=== PATIENT | male | born 1965 | race Hispanic/Latino ===

== ENCOUNTER 2017-08-16 07:21 | Day surgery (SDC) | payer BC ==
[2017-08-16 07:50] VITALS: BMI 35.3
[2017-08-16] MEDS ORDERED: Propofol 10 mg/ml Inj (20 ML) ONE (08:45)
[2017-08-16] MEDS ORDERED: Phenylephrine 10 mg/ml Inj ONE (08:52)
[2017-08-16] MEDS ORDERED: Lactated Ringer's 1,000 ML IV ONE (09:10)
[2017-08-16 09:57] VITALS: TEMP 97.4
[2017-08-16 10:42] VITALS: BP 124/85; PULSE 85; RESP 21; O2SAT 100
== END 2017-08-16 10:42 | disposition home or self-care (01) ==
LOC: C.ENDO 07:21
PROVIDERS: ATTEND Internal Medicine Gastroenterology
DX: Z12.11 Encounter for screening for malignant neoplasm of colon (principal); D12.3 Benign neoplasm of transverse colon; K64.1 Second degree hemorrhoids; K59.00 Constipation, unspecified; K62.5 Hemorrhage of anus and rectum; E11.9 Type 2 diabetes mellitus without complications; I10 Essential (primary) hypertension; E66.9 Obesity, unspecified; Z68.35 Body mass index [BMI] 35.0-35.9, adult; Z98.890 Other specified postprocedural states; Z79.82 Long term (current) use of aspirin; Z79.84 Long term (current) use of oral hypoglycemic drugs; Z79.899 Other long term (current) drug therapy
CPT/HCPCS: 45380; 82948; 88305; J2001; J2370; J2704; J2765; J7120

== ENCOUNTER 2017-10-02 19:11 | Emergency (ER) | payer OTHER ==
[2017-10-02 19:11] VITALS: BMI 35.3
[2017-10-02 19:18] VITALS: BP 141/99; PULSE 89; TEMP 98.2; O2SAT 97
[2017-10-02] MEDS ORDERED: [UNRECOGNIZED DRUG - SUPPLY] MM ONE (19:28)
[2017-10-02] MEDS ORDERED: Absorbable Gelatin Sponge Size 12-7 ONE ×2 (19:32→19:42)
--- NOTE | 2017-10-02 19:32 | C.PDOC ---
History Of Present Illness 52 yo male came in to ED for right thumb laceration just prior to arrival. Pt notes he was using a medallion cutting onions and get his finger. Right hand dominant. No change in sensation or weakness. Time Seen by Provider: 10/02/17 19:17 Chief Complaint (Nursing): Abnormal Skin Integrity History Per: Patient History/Exam Limitations: no limitations Onset/Duration Of Symptoms: Mins Current Symptoms Are (Timing): Still Present Past Medical History Vital Signs: Last Vital Signs Temp 98.2 F 10/02/17 19:16 Pulse 89 10/02/17 19:16 Resp 20 10/02/17 19:47 BP 141/99 H 10/02/17 19:16 Pulse Ox 97 10/02/17 19:35 - Medical History PMH: Diabetes, HTN, Sleep Apnea (QUESTIONABLE) Denies: Chronic Kidney Disease Surgical History: Tonsillectomy Family History: States: Unknown Family Hx - Social History Hx Tobacco Use: Yes Hx Alcohol Use: No Hx Substance Use: No - Immunization History Hx Tetanus Toxoid Vaccination: No Hx Influenza Vaccination: Yes (11/2013) Hx Pneumococcal Vaccination: No Review Of Systems Except As Marked, All Systems Reviewed And Found Negative. Physical Exam - Physical Exam Appears: Well, Non-toxic, No Acute Distress Skin: Warm, Dry, Other ((+) 1 cm avulsion of the right distal thumb, mild oozing ) Head: Atraumatic, Normacephalic Eye(s): bilateral: Normal Inspection, EOMI Nose: Normal Oral Mucosa: Moist Neck: Normal, Normal ROM, Supple Chest: Symmetrical Respiratory: No Accessory Muscle Use Back: Normal Inspection Extremity: Normal ROM, Capillary Refill (<2 sec) Pulses: Left Radial: Normal, Right Radial: Normal Neurological/Psych: Oriented x3, Normal Motor, Normal Sensation ED Course And Treatment O2 Sat by Pulse Oximetry: 97 Progress Note: Pt noted to have elevated BP. Pt notes that he is due for his HTN medication and would prefer to take it at home. Denies chest pain, sob , headache, dizziness or other complaints. Area was cleansed, gel foam applied, and dressed by RN. Instructed wound care and to follow up with PMD in 2 days for wound check. Discussed with pt since he is a diabetic with open wound, will given abx to ensure no infection. Disposition - Disposition Disposition: HOME/ ROUTINE Disposition Time: 19:29 Condition: STABLE Additional Instructions: Wound check in 2 days. Watch for signs of infection including redness, swelling and discharge. Prescriptions: Cephalexin [cephalexin] 500 mg PO BID #14 cap Instructions: Wound Care (DC) Forms: [facility] (Hebrew) - Clinical Impression Clinical Impression: Skin avulsion
[2017-10-02] MEDS ORDERED: Tdap Vaccine 0.5 ml Vial (10-64 yrs) IM ONE (19:38)
[2017-10-02 19:48] VITALS: RESP 20
== END 2017-10-02 19:47 | disposition home or self-care (01) ==
LOC: C.ER 19:11
DX: S61.001A Unspecified open wound of right thumb without damage to nail, initial encounter (principal); W45.8XXA Other foreign body or object entering through skin, initial encounter; Y93.G1 Activity, food preparation and clean up

== ENCOUNTER 2018-03-14 08:34 | Outpatient (CLI) | payer OTHER | END 2018-03-14 08:35 | disposition home or self-care (01) | LOC: C.LAB 08:34 ==